=== PATIENT | male | born 1990 | race Caucasian/White ===

== ENCOUNTER 2019-05-20 13:23 | Emergency (ER) | payer OTHER ==
[~2019-05-20] VITALS: Ht 172.7 cm; Wt 79.5 kg
[~2019-05-20 13:23] MED LIST: SERT50TA12 PO
[2019-05-20 13:28] VITALS: BP 137/89
== END 2019-05-20 14:23 | disposition left against medical advice (07) ==
LOC: EMS 13:24
DX: S61.412A Laceration without foreign body of left hand, initial encounter (principal); F32.9 Major depressive disorder, single episode, unspecified; Z53.21 Procedure and treatment not carried out due to patient leaving prior to being seen by health care provider; W01.0XXA Fall on same level from slipping, tripping and stumbling without subsequent striking against object, initial encounter; Y93.01 Activity, walking, marching and hiking; Y92.828 Other wilderness area as the place of occurrence of the external cause; Y99.8 Other external cause status

== ENCOUNTER 2021-03-13 13:57 | Emergency (ER) | payer OTHER ==
[~2021-03-13] VITALS: Ht 167.6 cm; Wt 65.9 kg
[2021-03-13 15:22] LABS: APPEARANCE,URINE CLEAR (CLEAR); BILIRUBIN,URINE NEGATIVE (NEGATIVE); GLUCOSE, URINE (UA) NEGATIVE (NEGATIVE); KETONES,URINE NEGATIVE (NEGATIVE); LEUKOCYTE ESTERASE ,URINE NEGATIVE (NEGATIVE); NITRATE,URINE NEGATIVE (NEGATIVE); OCCULT BLOOD,URINE NEGATIVE (NEGATIVE); PH,URINE 7.5 (5.0-8.0); PROTEIN,URINE NEGATIVE (NEGATIVE); UROBILINOGEN,URINE 0.2 mg/dL (<=1.0)
[2021-03-13] MEDS: LIDOCAINE/PF 1% 2 ML VIAL IM ONE (15:35)
[2021-03-13] MEDS: AZITHROMYCIN 500 MG TABLET PO ONE (15:35)
[2021-03-13] MEDS: CefTRIAXone SODIUM 1 GM/VIAL IM ONE (15:36)
[2021-03-13 15:43] VITALS: BP 148/80
== END 2021-03-13 15:44 | disposition home or self-care (01) ==
LOC: EMS 14:06
DX: N34.2 Other urethritis (principal)
CPT/HCPCS: 81003; 87491; 87591; 96372; 99283; A9575; J0696; J3490

== ENCOUNTER 2021-05-23 08:54 | Emergency (ER) | payer OTHER ==
[~2021-05-23] VITALS: Ht 167.6 cm; Wt 85.0 kg
[2021-05-23 10:27] VITALS: BP 133/84
[2021-05-23] MEDS ORDERED: PredniSONE 20 MG TABLET PO ONE (10:30)
== END 2021-05-23 10:39 | disposition home or self-care (01) ==
LOC: EMS 08:54
DX: L50.9 Urticaria, unspecified (principal); F32.9 Major depressive disorder, single episode, unspecified; F19.90 Other psychoactive substance use, unspecified, uncomplicated
CPT/HCPCS: 99283; J7512

== ENCOUNTER 2023-01-16 18:10 | Emergency (ER) | payer OTHER ==
[~2023-01-16] VITALS: Ht 167.6 cm; Wt 95.5 kg
[2023-01-16] MEDS ORDERED: ONDANSETRON HCL 4 MG/2 ML VIAL IVP ONE (18:30)
[2023-01-16] MEDS ORDERED: SODIUM CHLORIDE 0.9% 1,000 ML IV ONE ×2 (18:30→21:00)
[2023-01-16] MEDS ORDERED: MAG HYDROX/AL HYDROX/SIMETH 30 ML SUSP UDCUP PO ONE (18:30)
[2023-01-16] MEDS ORDERED: FAMOTIDINE 10 MG/ML 2 ML VIAL IVP ONE (18:30)
[2023-01-16 18:46] LABS: BASOPHILS % (AUTO) 0.2 % (0.0-2.0); EOSINOPHILS % (AUTO) 0.5 % (1.0-6.0); HEMOGLOBIN 14.8 g/dL (13.5-17.5); LYMPHOCYTES # (AUTO) 1.3 K/uL (1.0-4.8); MEAN CORPUSCULAR HEMOGLOBIN 31.1 pg (26.0-34.0); MEAN CORPUSCULAR VOLUME 94 fL (80-100); MONOCYTES % (AUTO) 7.2 % (2.0-9.0); NEUTROPHILS # (AUTO) 10.8 K/uL (1.8-7.7); NEUTROPHILS % (AUTO) 82.1 % (40.0-70.0); PLATELET COUNT (AUTO) 266 K/uL (150-450); RED BLOOD CELL COUNT(AUTO) 4.77 MIL/uL (4.50-5.90); RED CELL DISTRIBUTION WIDTH 13.1 % (11.5-14.5)
[2023-01-16 18:54] LABS: ANION GAP 15 mmol/L (8-16); CALCIUM, TOTAL 8.8 mg/dL (8.8-10.5); CARBON DIOXIDE 25 mmol/L (22-29); CHLORIDE 101 mmol/L (98-107); CREATININE 1.01 mg/dL (0.60-1.30); GLOMERULAR FILTR. RATE CALC > 60 mL/min (>60); GLUCOSE,RANDOM 131 mg/dL (70-110); POTASSIUM 3.5 mmol/L (3.5-5.1); SODIUM SERUM 141 mmol/L (136-145); UREA NITROGEN, BLOOD 15 mg/dL (7-18)
[2023-01-16 19:13] LABS: B-TYPE NATRIURETIC PEPTIDE 7 pg/mL (0-100)
[2023-01-16 19:14] LABS: MAGNESIUM 2.1 mg/dL (1.80-2.40); PHOSPHORUS 3.4 mg/dL (2.5-4.9)
[2023-01-16 19:18] LABS: ALANINE AMINOTRANSFERASE 53 U/L (12-78); ALBUMIN 4.6 g/dL (3.4-5.0); ALKALINE PHOSPHATASE 83 U/L (46-116); ASPARTATE AMINOTRANSFERASE 30 U/L (15-37); BILIRUBIN,TOTAL 0.5 mg/dL (0.1-1.0); CREATINE KINASE, TOTAL ONLY 526 U/L (39-308); LIPASE 118 U/L (73-393); TOTAL PROTEIN, SERUM 8.1 g/dL (6.4-8.2)
[2023-01-16 19:35] LABS: APPEARANCE,URINE CLEAR (CLEAR); BILIRUBIN,URINE NEGATIVE (NEGATIVE); GLUCOSE, URINE (UA) NEGATIVE (NEGATIVE); KETONES,URINE NEGATIVE (NEGATIVE); LEUKOCYTE ESTERASE ,URINE NEGATIVE (NEGATIVE); NITRATE,URINE NEGATIVE (NEGATIVE); OCCULT BLOOD,URINE NEGATIVE (NEGATIVE); PH,URINE 5.5 (5.0-8.0); PROTEIN,URINE NEGATIVE (NEGATIVE); SPECIFIC GRAVITIY, URINE 1.019 (1.003-1.030); UROBILINOGEN,URINE <=1.0 mg/dL (<=1.0)
[2023-01-16 19:41] LABS: AMPHET/METH SCREEN,URINE NEGATIVE (NEGATIVE); BARBITURATE SCREEN, URINE NEGATIVE (NEGATIVE); BENZODIAZEPINES SCREEN,URINE NEGATIVE (NEGATIVE); CANNABINOID SCREEN,URINE POSITIVE (NEGATIVE); COCAINE SCREEN,URINE NEGATIVE (NEGATIVE); METHADONE SCREEN, URINE NEGATIVE (NEGATIVE); OPIATE SCREEN,URINE NEGATIVE (NEGATIVE); PHENCYCLIDINE SCREEN,URINE NEGATIVE (NEGATIVE)
[2023-01-16] MEDS ORDERED: SODIUM CHLORIDE 0.9% 100 ML ONE ×2 (19:44→21:53)
[2023-01-16] MEDS ORDERED: IOHEXOL 350 MG/ML 100 ML VIAL ONE ×2 (19:44→21:52)
[2023-01-16] MEDS ORDERED: MORPHINE SULFATE 2 MG/ML SYRINGE IVP ONE ×3 (19:45→20:00)
[2023-01-16] MEDS ORDERED: ONDA-104 PO (21:41)
[2023-01-16] MEDS ORDERED: HYDROmorphone HCL 2 MG/ML SYRINGE IVP ONE (22:45)
[2023-01-16 23:00] VITALS: BP 149/96
== END 2023-01-17 00:19 | disposition home or self-care (01) ==
LOC: EMS 18:10
DX: R53.1 Weakness (principal); F11.90 Opioid use, unspecified, uncomplicated; F19.10 Other psychoactive substance abuse, uncomplicated; F32.A Depression, unspecified; F15.90 Other stimulant use, unspecified, uncomplicated
CPT/HCPCS: 99285; 71275; 96374; 96375; 71045; 96361; 80053; 82550; 83690; 83735; 83880; 84100; 84484; 85025; 36415; 74177; 93005; 96376; 81003; 80307 ×2; G0480; J3490; J1170; J2270; J2405; Q9967; J7030; J7050

== ENCOUNTER 2023-06-25 13:46 | Inpatient (IN) | payer MEDICAID, OTHER ==
[~2023-06-25] VITALS: Ht 172.7 cm; Wt 109.1 kg
[~2023-06-25 13:46] MED LIST changes: +ONDA-104 PO; -SERT50TA12 PO
[2023-06-25] MEDS ORDERED: LORazepam 2 MG/ML VIAL ONE (15:07)
[2023-06-25] MEDS ORDERED: HALOPERIDOL LACTATE 5 MG/ML VIAL ONE (15:13)
[2023-06-25] MEDS ORDERED: DiphenhydrAMINE HCL 50 MG/ML VIAL ONE (15:13)
[2023-06-25] MEDS ORDERED: LORazepam 2 MG/ML VIAL IM ONE ×2 (15:15→20:15)
[2023-06-25] MEDS ORDERED: HALOPERIDOL LACTATE 5 MG/ML VIAL IM ONE (15:15)
[2023-06-25] MEDS ORDERED: DiphenhydrAMINE HCL 50 MG/ML VIAL IM ONE (15:15)
[2023-06-25] MEDS ORDERED: ZOLPIDEM TARTRATE 10 MG TABLET PO PRN (16:15)
[2023-06-25] MEDS ORDERED: PROP20TA18 PO (16:33)
[2023-06-25] MEDS ORDERED: SERT-162 PO (16:33)
[2023-06-25] MEDS ORDERED: MIRT-89 PO (16:33)
[2023-06-25] MEDS ORDERED: GABA-1181 PO (16:33)
[2023-06-25] MEDS ORDERED: NALT50TA6 PO (16:33)
[2023-06-25 16:41] LABS: BASOPHILS % (AUTO) 0.4 % (0.0-2.0); EOSINOPHILS % (AUTO) 0.1 % (1.0-6.0); HEMATOCRIT 45.1 % (41-53); HEMOGLOBIN 15.4 g/dL (13.5-17.5); LYMPHOCYTES # (AUTO) 1.1 K/uL (1.0-4.8); MEAN CORPUSCULAR HEMOGLOBIN 32.7 pg (26.0-34.0); MEAN CORPUSCULAR HGB CONC 34.1 G/dL (31.0-37.0); MEAN CORPUSCULAR VOLUME 96 fL (80-100); MONOCYTES # (AUTO) 0.8 K/uL (0.1-1.0); NEUTROPHILS # (AUTO) 5.6 K/uL (1.8-7.7); NEUTROPHILS % (AUTO) 74.5 % (40.0-70.0); PLATELET COUNT (AUTO) 283 K/uL (150-450); RED BLOOD CELL COUNT(AUTO) 4.71 MIL/uL (4.50-5.90); RED CELL DISTRIBUTION WIDTH 13.5 % (11.5-14.5)
[2023-06-25 17:02] LABS: COVID AG,FIA SOURCE NASOPHARYNGEAL
[2023-06-25 17:05] LABS: ANION GAP 12 mmol/L (8-16); CALCIUM, TOTAL 9.1 mg/dL (8.8-10.5); CARBON DIOXIDE 25 mmol/L (22-29); CHLORIDE 100 mmol/L (98-107); CREATININE 1.04 mg/dL (0.60-1.30); GLOMERULAR FILTR. RATE CALC > 60 mL/min (>60); GLUCOSE,RANDOM 110 mg/dL (70-110); POTASSIUM 3.4 mmol/L (3.5-5.1); SODIUM SERUM 137 mmol/L (136-145)
[2023-06-25 17:11] LABS: ALANINE AMINOTRANSFERASE 228 U/L (12-78); ALBUMIN 4.4 g/dL (3.4-5.0); ALKALINE PHOSPHATASE 85 U/L (46-116); ASPARTATE AMINOTRANSFERASE 50 U/L (15-37); BILIRUBIN,TOTAL 0.8 mg/dL (0.1-1.0)
[2023-06-25] MEDS: HALOPERIDOL 5 MG TABLET PO PRN (17:49)
[2023-06-25] MEDS: LORazepam 2 MG TABLET PO PRN (17:50)
[2023-06-25] MEDS ORDERED: ZIPRASIDONE MESYLATE 20 MG/VIAL IM ONE (20:15)
[2023-06-26] MEDS: HALOPERIDOL 5 MG TABLET PO PRN ×2 (02:18→09:02)
[2023-06-26] MEDS: LORazepam 2 MG TABLET PO PRN ×2 (02:18→09:02)
[2023-06-26 02:19] LABS: AMPHET/METH SCREEN,URINE NEGATIVE (NEGATIVE); BARBITURATE SCREEN, URINE NEGATIVE (NEGATIVE); BENZODIAZEPINES SCREEN,URINE POSITIVE (NEGATIVE); CANNABINOID SCREEN,URINE POSITIVE (NEGATIVE); COCAINE SCREEN,URINE NEGATIVE (NEGATIVE); METHADONE SCREEN, URINE NEGATIVE (NEGATIVE); OPIATE SCREEN,URINE NEGATIVE (NEGATIVE); PHENCYCLIDINE SCREEN,URINE NEGATIVE (NEGATIVE)
[2023-06-26 05:08] VITALS: RESP 18
[2023-06-26] MEDS ORDERED: LORazepam 2 MG/ML VIAL IM ONE (05:15)
[2023-06-26] MEDS ORDERED: DiphenhydrAMINE HCL 50 MG/ML VIAL IM ONE (05:15)
[2023-06-26] MEDS ORDERED: HALOPERIDOL LACTATE 5 MG/ML VIAL IM ONE (05:15)
[2023-06-26] MEDS ORDERED: DiphenhydrAMINE HCL 50 MG/ML VIAL ONE (05:20)
[2023-06-26] MEDS ORDERED: BACITRACIN 28 GM OINTMENT TP PRN (07:15)
[2023-06-26] MEDS ORDERED: IBUPROFEN 600 MG TABLET PO PRN (07:15)
[2023-06-26] MEDS ORDERED: ONDANSETRON HCL 4 MG TABLET PO PRN (07:15)
[2023-06-26] MEDS ORDERED: DOCUSATE SODIUM 100 MG CAPSULE PO PRN (07:15)
[2023-06-26] MEDS ORDERED: OMEPRAZOLE 20 MG CAPSULE PO PRN (07:15)
[2023-06-26] MEDS ORDERED: BENZOCAINE/MENTHOL LOZENGE PO PRN (07:15)
[2023-06-26] MEDS ORDERED: ACETAMINOPHEN 325 MG TABLET PO PRN (07:15)
[2023-06-26] MEDS ORDERED: ALBUTEROL SULFATE HFA 90 MCG/PUFF 8 GM INHALER IH PRN (07:15)
[2023-06-26] MEDS ORDERED: CloNIDine HCL 0.1 MG TABLET PO PRN (07:15)
[2023-06-26] MEDS ORDERED: MAGNESIUM HYDROXIDE SUSPENSION 30 ML UDCUP PO PRN (07:15)
[2023-06-26] MEDS ORDERED: MAG HYDROX/AL HYDROX/SIMETH ES 30 ML SUSPENSION UDCUP PO PRN (07:15)
[2023-06-26] MEDS ORDERED: PETROLATUM,WHITE 28 GM JELLY TP PRN (07:15)
[2023-06-26] MEDS ORDERED: LOPERAMIDE HCL 2 MG CAPSULE PO PRN (07:15)
[2023-06-26 08:00] VITALS: BP 140/70; PULSE 76; RESP 18; TEMP 97.5; O2SAT 96
[2023-06-26] MEDS ORDERED: GABAPENTIN 300 MG CAPSULE PO SCH (09:00)
[2023-06-26] MEDS ORDERED: PROPRANOLOL HCL 20 MG TABLET PO SCH (09:00)
[2023-06-26 11:15] VITALS: BP 140/99; PULSE 111; RESP 20; TEMP 98.5; O2SAT 95
[2023-06-26 12:50] VITALS: BP 138/70; PULSE 103; RESP 18; TEMP 97.6; O2SAT 95
== END 2023-06-26 17:20 | disposition home or self-care (01) | DRG 750 ==
LOC: EMS 13:46 → B3A 06-26 00:16
PROVIDERS: ADMIT Psychiatry & Neurology Psychiatry; ATTEND Psychiatry & Neurology Psychiatry
DX: F25.9 Schizoaffective disorder, unspecified (principal); R45.851 Suicidal ideations; F41.9 Anxiety disorder, unspecified; G47.00 Insomnia, unspecified; F17.200 Nicotine dependence, unspecified, uncomplicated; Z20.822 Contact with and (suspected) exposure to COVID-19; F19.10 Other psychoactive substance abuse, uncomplicated; F10.10 Alcohol abuse, uncomplicated; K59.00 Constipation, unspecified; F32.A Depression, unspecified; Z79.899 Other long term (current) drug therapy
CPT/HCPCS: 80053; 80307; 85025; 99291; G0480; J1200; J1630; J2060; J3486

== ENCOUNTER 2023-07-06 10:02 | Inpatient (IN) | payer MEDICAID ==
[~2023-07-06] VITALS: Ht 167.6 cm; Wt 92.5 kg
[~2023-07-06 10:02] MED LIST changes: +GABA-1181 PO; +MIRT-89 PO; +NALT50TA6 PO; -ONDA-104 PO; +PROP20TA18 PO; +SERT-162 PO
[2023-07-06] MEDS ORDERED: HALOPERIDOL 5 MG TABLET PO PRN (11:45)
[2023-07-06 18:22] VITALS: BP 129/68; PULSE 68; RESP 18; TEMP 97.8; O2SAT 96
[2023-07-06] MEDS: MIRTAZAPINE 15 MG TABLET PO SCH (20:15)
[2023-07-06] MEDS: ZOLPIDEM TARTRATE 10 MG TABLET PO PRN (20:52)
[2023-07-06] MEDS: LORazepam 2 MG TABLET PO PRN (20:52)
[2023-07-06 21:48] VITALS: BP 123/69; PULSE 83; RESP 18; TEMP 97.9; O2SAT 98
[2023-07-07] MEDS: FOLIC ACID 1 MG TABLET PO SCH (08:02)
[2023-07-07] MEDS: SERTRALINE HCL 100 MG TABLET PO SCH (08:02)
[2023-07-07] MEDS: PANTOPRAZOLE SODIUM 40 MG DR TABLET PO SCH (08:03)
[2023-07-07] MEDS: DOCUSATE SODIUM 100 MG CAPSULE PO SCH ×2 (08:03→16:29)
[2023-07-07] MEDS: PROPRANOLOL HCL 20 MG TABLET PO SCH (08:03)
[2023-07-07] MEDS: GABAPENTIN 300 MG CAPSULE PO SCH (08:03)
[2023-07-07 08:15] VITALS: BP 100/60; PULSE 61; RESP 17; TEMP 98.1; O2SAT 96
[2023-07-07] MEDS: THIAMINE 100 MG TABLET PO SCH (08:34)
[2023-07-07] MEDS: LORazepam 2 MG TABLET PO PRN ×2 (16:29→21:20)
[2023-07-07 20:01] VITALS: BP 117/79; PULSE 79; RESP 18; TEMP 97.9; O2SAT 98
[2023-07-07] MEDS: MIRTAZAPINE 15 MG TABLET PO SCH (20:23)
[2023-07-07] MEDS: ZOLPIDEM TARTRATE 10 MG TABLET PO PRN (21:20)
[2023-07-08 08:19] VITALS: BP 108/57; PULSE 78; RESP 17; TEMP 98; O2SAT 97
[2023-07-08] MEDS: GABAPENTIN 300 MG CAPSULE PO SCH (08:41)
[2023-07-08] MEDS: FOLIC ACID 1 MG TABLET PO SCH (08:41)
[2023-07-08] MEDS: DOCUSATE SODIUM 100 MG CAPSULE PO SCH ×2 (08:41→18:27)
[2023-07-08] MEDS: PROPRANOLOL HCL 20 MG TABLET PO SCH (08:41)
[2023-07-08] MEDS: THIAMINE 100 MG TABLET PO SCH (08:41)
[2023-07-08] MEDS: SERTRALINE HCL 100 MG TABLET PO SCH (08:41)
[2023-07-08] MEDS: PANTOPRAZOLE SODIUM 40 MG DR TABLET PO SCH (08:41)
[2023-07-08] MEDS: LORazepam 2 MG TABLET PO PRN (18:28)
[2023-07-08] MEDS: MIRTAZAPINE 15 MG TABLET PO SCH (20:23)
[2023-07-08 20:45] VITALS: BP 135/83; PULSE 80; RESP 17; TEMP 98.4; O2SAT 95
[2023-07-09 08:04] VITALS: BP 102/60; PULSE 79; RESP 17; TEMP 98.1; O2SAT 98
[2023-07-09] MEDS: DOCUSATE SODIUM 100 MG CAPSULE PO SCH ×2 (10:08→17:12)
[2023-07-09] MEDS: PROPRANOLOL HCL 20 MG TABLET PO SCH (10:08)
[2023-07-09] MEDS: FOLIC ACID 1 MG TABLET PO SCH (10:08)
[2023-07-09] MEDS: SERTRALINE HCL 100 MG TABLET PO SCH (10:08)
[2023-07-09] MEDS: GABAPENTIN 300 MG CAPSULE PO SCH (10:08)
[2023-07-09] MEDS: THIAMINE 100 MG TABLET PO SCH (10:08)
[2023-07-09] MEDS: PANTOPRAZOLE SODIUM 40 MG DR TABLET PO SCH (10:09)
[2023-07-09] MEDS: LORazepam 2 MG TABLET PO PRN ×2 (17:12→21:14)
[2023-07-09 20:02] VITALS: BP 105/66; PULSE 78; RESP 18; TEMP 98.2; O2SAT 97
[2023-07-09] MEDS: MIRTAZAPINE 15 MG TABLET PO SCH (20:37)
[2023-07-09] MEDS: ZOLPIDEM TARTRATE 10 MG TABLET PO PRN (21:14)
[2023-07-10 08:05] VITALS: BP 116/55; PULSE 82; RESP 18; TEMP 98.7; O2SAT 99
[2023-07-10] MEDS: PROPRANOLOL HCL 20 MG TABLET PO SCH (08:11)
[2023-07-10] MEDS: SERTRALINE HCL 100 MG TABLET PO SCH (08:11)
[2023-07-10] MEDS: PANTOPRAZOLE SODIUM 40 MG DR TABLET PO SCH (08:11)
[2023-07-10] MEDS: DOCUSATE SODIUM 100 MG CAPSULE PO SCH ×2 (08:11→16:54)
[2023-07-10] MEDS: FOLIC ACID 1 MG TABLET PO SCH (08:11)
[2023-07-10] MEDS: GABAPENTIN 300 MG CAPSULE PO SCH (08:11)
[2023-07-10] MEDS: THIAMINE 100 MG TABLET PO SCH (09:19)
[2023-07-10] MEDS ORDERED: DiphenhydrAMINE/ZINC ACET 30 GM CREAM TP PRN (14:15)
[2023-07-10] MEDS: LORazepam 2 MG TABLET PO PRN ×2 (16:54→20:56)
[2023-07-10 20:04] VITALS: BP 127/80; PULSE 77; RESP 19; TEMP 97.7; O2SAT 97
[2023-07-10] MEDS: MIRTAZAPINE 15 MG TABLET PO SCH (20:08)
[2023-07-10] MEDS: ZOLPIDEM TARTRATE 10 MG TABLET PO PRN (20:56)
[2023-07-11] MEDS: SERTRALINE HCL 100 MG TABLET PO SCH (08:03)
[2023-07-11] MEDS: PANTOPRAZOLE SODIUM 40 MG DR TABLET PO SCH (08:03)
[2023-07-11] MEDS: FOLIC ACID 1 MG TABLET PO SCH (08:03)
[2023-07-11] MEDS: GABAPENTIN 300 MG CAPSULE PO SCH (08:03)
[2023-07-11] MEDS: THIAMINE 100 MG TABLET PO SCH (08:03)
[2023-07-11] MEDS: DOCUSATE SODIUM 100 MG CAPSULE PO SCH ×2 (08:03→16:57)
[2023-07-11] MEDS: PROPRANOLOL HCL 20 MG TABLET PO SCH (08:03)
[2023-07-11 08:13] VITALS: BP 118/68; PULSE 78; RESP 18; TEMP 97.8; O2SAT 98
[2023-07-11] MEDS: LORazepam 2 MG TABLET PO PRN ×2 (16:58→21:04)
[2023-07-11 20:06] VITALS: BP 114/64; PULSE 70; RESP 18; TEMP 97.6; O2SAT 98
[2023-07-11] MEDS: MIRTAZAPINE 15 MG TABLET PO SCH (21:04)
[2023-07-11] MEDS: ZOLPIDEM TARTRATE 10 MG TABLET PO PRN (21:04)
[2023-07-12 08:03] VITALS: BP 114/60; PULSE 70; RESP 18; TEMP 97; O2SAT 95
[2023-07-12] MEDS: FOLIC ACID 1 MG TABLET PO SCH (08:21)
[2023-07-12] MEDS: SERTRALINE HCL 100 MG TABLET PO SCH (08:21)
[2023-07-12] MEDS: THIAMINE 100 MG TABLET PO SCH (08:21)
[2023-07-12] MEDS: PANTOPRAZOLE SODIUM 40 MG DR TABLET PO SCH (08:21)
[2023-07-12] MEDS: GABAPENTIN 300 MG CAPSULE PO SCH (08:21)
[2023-07-12] MEDS: DOCUSATE SODIUM 100 MG CAPSULE PO SCH ×2 (08:21→16:52)
[2023-07-12] MEDS: LORazepam 2 MG TABLET PO PRN ×3 (08:21→21:01)
[2023-07-12] MEDS: PROPRANOLOL HCL 20 MG TABLET PO SCH (08:21)
[2023-07-12 18:56] LABS: GLUCOMETER DEV NAME(LOC) POC.BV; POC SARS-COV2 AG, FIA NEGATIVE (NEGATIVE)
[2023-07-12 20:05] VITALS: BP 132/68; PULSE 73; RESP 18; TEMP 98.4; O2SAT 96
[2023-07-12] MEDS: MIRTAZAPINE 15 MG TABLET PO SCH (20:28)
[2023-07-12] MEDS: ZOLPIDEM TARTRATE 10 MG TABLET PO PRN (21:02)
[2023-07-13] VITALS (7 sets, daily range): BP systolic 104–122; BP diastolic 65; PULSE 71–76; RESP 18–19; TEMP 97–98.1; O2SAT 97–98
[2023-07-13] MEDS: PROPRANOLOL HCL 20 MG TABLET PO SCH (08:24)
[2023-07-13] MEDS: PANTOPRAZOLE SODIUM 40 MG DR TABLET PO SCH (08:24)
[2023-07-13] MEDS: LORazepam 2 MG TABLET PO PRN (08:25)
[2023-07-13] MEDS: GABAPENTIN 300 MG CAPSULE PO SCH (08:25)
[2023-07-13] MEDS: THIAMINE 100 MG TABLET PO SCH (08:25)
[2023-07-13] MEDS: FOLIC ACID 1 MG TABLET PO SCH (08:25)
[2023-07-13] MEDS: DOCUSATE SODIUM 100 MG CAPSULE PO SCH ×2 (08:25→16:53)
[2023-07-13] MEDS: SERTRALINE HCL 100 MG TABLET PO SCH (08:46)
[2023-07-13] MEDS: MIRTAZAPINE 15 MG TABLET PO SCH (20:37)
[2023-07-13] MEDS: ZOLPIDEM TARTRATE 10 MG TABLET PO PRN (20:50)
[2023-07-14] MEDS: DOCUSATE SODIUM 100 MG CAPSULE PO SCH ×2 (08:12→16:08)
[2023-07-14] MEDS: SERTRALINE HCL 100 MG TABLET PO SCH (08:13)
[2023-07-14] MEDS: PROPRANOLOL HCL 20 MG TABLET PO SCH (08:13)
[2023-07-14] MEDS: GABAPENTIN 300 MG CAPSULE PO SCH (08:13)
[2023-07-14] MEDS: FOLIC ACID 1 MG TABLET PO SCH (08:13)
[2023-07-14] MEDS: THIAMINE 100 MG TABLET PO SCH (08:13)
[2023-07-14 08:38] VITALS: BP 113/68; PULSE 72; RESP 18; TEMP 97.9; O2SAT 98
[2023-07-14] MEDS: PANTOPRAZOLE SODIUM 40 MG DR TABLET PO SCH (09:26)
[2023-07-14 20:34] VITALS: BP 117/67; PULSE 67; RESP 18; TEMP 98.2; O2SAT 99
[2023-07-14] MEDS: MIRTAZAPINE 15 MG TABLET PO SCH (20:41)
[2023-07-14] MEDS: ZOLPIDEM TARTRATE 10 MG TABLET PO PRN (21:24)
[2023-07-15 08:20] VITALS: BP 118/60; PULSE 64; RESP 17; TEMP 97.8; O2SAT 99
[2023-07-15] MEDS: THIAMINE 100 MG TABLET PO SCH (08:28)
[2023-07-15] MEDS: PROPRANOLOL HCL 20 MG TABLET PO SCH (08:28)
[2023-07-15] MEDS: GABAPENTIN 300 MG CAPSULE PO SCH (08:28)
[2023-07-15] MEDS: DOCUSATE SODIUM 100 MG CAPSULE PO SCH (08:28)
[2023-07-15] MEDS: SERTRALINE HCL 100 MG TABLET PO SCH (08:28)
[2023-07-15] MEDS: PANTOPRAZOLE SODIUM 40 MG DR TABLET PO SCH (08:28)
[2023-07-15] MEDS: FOLIC ACID 1 MG TABLET PO SCH (08:29)
[2023-07-15] MEDS ORDERED: MIRT-89 PO (08:33)
[2023-07-15] MEDS ORDERED: SERT-440 PO (20:10)
[2023-07-15] MEDS ORDERED: GABA-1181 PO (20:10)
== END 2023-07-15 09:19 | DRG 753 ==
LOC: B3A 16:46 → B2S 07-13 14:37
PROVIDERS: ADMIT Psychiatry & Neurology Psychiatry; ATTEND Psychiatry & Neurology Psychiatry
DX: F31.9 Bipolar disorder, unspecified (principal); F10.139 Alcohol abuse with withdrawal, unspecified; G47.00 Insomnia, unspecified; F19.10 Other psychoactive substance abuse, uncomplicated; Z20.822 Contact with and (suspected) exposure to COVID-19
CPT/HCPCS: 87081; Z7610

== ENCOUNTER 2023-12-23 23:08 | Emergency (ER) | payer MEDICAID, OTHER ==
[~2023-12-23] VITALS: Ht 167.6 cm; Wt 100.0 kg
[~2023-12-23 23:08] MED LIST changes: -NALT50TA6 PO; +SERT-440 PO
[2023-12-23 23:10] VITALS: BP 151/99; PULSE 86; RESP 18; TEMP 97.9
[2023-12-23] MEDS ORDERED: METH4TAB3 PO (23:27)
[2023-12-23] MEDS ORDERED: DIPH-1243 PO (23:27)
[2023-12-23] MEDS ORDERED: CETI-193 PO (23:27)
[2023-12-23] MEDS: MethylPREDNISolone SOD SUCC 125 MG/2 ML VIAL IVP ONE (23:38)
[2023-12-23] MEDS: DiphenhydrAMINE HCL 50 MG/ML VIAL IVP ONE (23:39)
[2023-12-23] MEDS: FAMOTIDINE 20 MG/2 ML VIAL IVP ONE (23:39)
== END 2023-12-24 00:30 | disposition home or self-care (01) ==
LOC: EMS 23:09
DX: T78.40XA Allergy, unspecified, initial encounter (principal); L50.9 Urticaria, unspecified; F41.9 Anxiety disorder, unspecified; F32.A Depression, unspecified; F20.9 Schizophrenia, unspecified; K76.9 Liver disease, unspecified; K40.90 Unilateral inguinal hernia, without obstruction or gangrene, not specified as recurrent; F17.210 Nicotine dependence, cigarettes, uncomplicated; F12.90 Cannabis use, unspecified, uncomplicated; F15.90 Other stimulant use, unspecified, uncomplicated; F11.90 Opioid use, unspecified, uncomplicated; X58.XXXA Exposure to other specified factors, initial encounter
CPT/HCPCS: 99291; 96374; 96375; J1200; J3490; J2930